=== PATIENT | female | born 1970 | race Hispanic/Latino ===

== ENCOUNTER 2017-06-11 19:47 | Emergency (ER) | payer MEDICAID ==
[2017-06-11 20:53] VITALS: BP 146/78; PULSE 100; RESP 16; TEMP 98.5; O2SAT 98
--- NOTE | 2017-06-11 21:13 | ED PDOC ---
Upper Extremity Pain/Injury Time Seen by Provider: 06/11/17 21:06 Chief Complaint (Nursing): Upper Extremity Problem/Injury Chief Complaint (Provider): Upeer Extremity Problem/Injury History Per: Patient History/Exam Limitations: no limitations Onset/Duration Of Symptoms: Hrs Current Symptoms Are (Timing): Still Present Additional Complaint(s): Ivory Lopez is a 46 year old female with no significant past medical history , who is presenting to the ER for evaluation of right hand and wrist pain with associated swelling, onset this morning s/p FOOSH injury. Patient states that she tripped and fell on cement around 9:45 this morning. She offers no other medical complaints at this time. PMD: Isaias Casarez Past Medical History Reviewed: Historical Data, Nursing Documentation, Vital Signs Vital Signs: Last Vital Signs Temp 98.5 F 06/11/17 20:49 Pulse 100 H 06/11/17 20:49 Resp 16 06/11/17 20:49 BP 146/78 06/11/17 20:49 Pulse Ox 98 06/11/17 20:49 - Medical History PMH: No Chronic Diseases - Surgical History Surgical History: No Surg Hx - Family History Family History: States: Unknown Family Hx - Allergies Allergies/Adverse Reactions: Allergies Allergy/AdvReac Type Severity Reaction Status Date / Time Penicillins Allergy ANAPHYLAXIS Verified 06/11/17 20:53 Review of Systems ROS Statement: Except As Marked, All Systems Reviewed And Found Negative Musculoskeletal: Positive for: Hand Pain, Other (wrist pain, swelling) Physical Exam - Reviewed Nursing Documentation Reviewed: Yes Vital Signs Reviewed: Yes - Physical Exam Appears: Positive for: Non-toxic, No Acute Distress Head Exam: Positive for: ATRAUMATIC, NORMAL INSPECTION, NORMOCEPHALIC Skin: Positive for: Normal Color Eye Exam: Positive for: Normal appearance Neck: Positive for: Normal Respiratory: Negative for: Respiratory Distress Extremity: Positive for: Tenderness (to ulnar side of right arm, snuffbox tenderness to right hand), Other (3/5 muscle strength). Negative for: Deformity - ECG O2 Sat by Pulse Oximetry: 98 (RA) Pulse Ox Interpretation: Normal Medical Decision Making Medical Decision Making: Time: 21:07 Plan: --X-Ray right hand --X-Ray right wrist X-Ray Hand: No fracture. No dislocation. Normal X-Ray. X-Ray Wrist: No fracture. No dislocation. Normal X-Ray. Scribe Attestation: Documented by Phylicia Benton, acting as a scribe for Austin Shrestha PA-C Provider Scribe Attestation: All medical record entries made by the Scribe were at my direction and personally dictated by me. I have reviewed the chart and agree that the record accurately reflects my personal performance of the history, physical exam, medical decision making, and the department course for this patient. I have also personally directed, reviewed, and agree with the discharge instructions and disposition. Disposition - Clinical Impression Clinical Impression: Right wrist sprain - Patient ED Disposition Is Patient to be Admitted: No Doctor Will See Patient In The: Office Counseled Patient/Family Regarding: Diagnosis, Need For Followup - Disposition Referrals: Dee Gambino MD [Staff Provider] - Disposition: Routine/Home Disposition Time: 21:28 Condition: GOOD Forms: [employer] (Burmese)
--- NOTE | 2017-06-12 12:53 | RAD ---
PROCEDURE: Right Hand Radiographs. HISTORY: r/o fx COMPARISON: None. FINDINGS: BONES: No acute fracture or destructive bony lesion identified. JOINTS: Normal. No osteoarthritic changes. SOFT TISSUES: Normal. OTHER FINDINGS: None. IMPRESSION: Unremarkable right hand radiographs.
--- NOTE | 2017-06-12 12:54 | RAD ---
PROCEDURE: Right Wrist Radiographs. HISTORY: FOOSH COMPARISON: None. FINDINGS: BONES: No acute fracture or destructive bony lesion identified, including the navicular bone. JOINTS: Normal. No dislocation. SOFT TISSUES: Normal. OTHER FINDINGS: None. IMPRESSION: Unremarkable right wrist radiographs.
== END 2017-06-11 22:25 | disposition home or self-care (01) ==
LOC: H.ER 19:47
DX: Z88.0 Allergy status to penicillin (principal)